=== PATIENT | female | born 1995 | race African-American/Black ===

== ENCOUNTER 2016-10-31 20:38 | Emergency (ER) | payer OTHER ==
[2016-10-31 20:48] VITALS: RESP 16
[2016-10-31 21:26] LABS: Appearance,Urine Cloudy (Clear); Bacteria,Urine Rare /hpf; Bilirubin,Urine Negative (Negative); Glucose,Urine (UA) Negative (Negative); Ketones,Urine Negative (Negative); Leukocyte Esterase,Urine Small (Negative); Mucus,Urine Rare /hpf; Nitrite,Urine Negative (Negative); Particle Count 3864; Protein,Urine Negative (Negative); RBC,Urine 1 /hpf (0-5); Specific Gravity,Urine 1.024 (1.001-1.035); Squamous Epithelial Cell,Urine 13 /hpf (0-4); UA Billing (MACRO vs. MICRO) MICRO; WBC,Urine 3 /hpf (0-5)
--- NOTE | 2016-10-31 22:06 | ED ---
Female Urogenital HPI - General Chief complaint: Urogenital Stated complaint: Female Time Seen by Provider: 10/31/16 21:04 Source: patient, RN notes reviewed Mode of arrival: ambulatory Limitations: no limitations - History of Present Illness Initial comments: Patient is a 21-year-old female presents to the emergency room for evaluation of vaginal irritation. Patient states she noticed pain while urinating this morning when she woke up. Patient states symptoms are not going away. Patient does state she has a history of bacterial vaginosis, chlamydia and gonorrhea. Patient states she was treated for all 3 in the past. Patient denies any known STDs from recent sexual partners. Patient denies blood in urine. Patient denies trouble urinating. Patient denies flank pain. Patient denies nausea or vomiting. Patient denies fevers or chills. Patient denies taking anything for her symptoms. Patient denies any abnormal vaginal discharge. Patient denies abdominal pain. Last Menstrual Period: 10/22/16 - Related Data Previous Rx's Medication Instructions Recorded Doxycycline [Vibramycin] 100 mg PO Q12HR 14 Days 10/31/16 Allergies Allergy/AdvReac Type Severity Reaction Status Date / Time No Known Allergies Allergy Verified 10/31/16 21:11 Review of Systems ROS Statement: Those systems with pertinent positive or pertinent negative responses have been documented in the HPI. ROS Other: All systems not noted in ROS Statement are negative. Past Medical History Past Medical History: No Reported History History of Any Multi-Drug Resistant Organisms: None Reported Past Surgical History: No Surgical Hx Reported Past Psychological History: No Psychological Hx Reported Smoking Status: Current every day smoker Past Alcohol Use History: None Reported Past Drug Use History: None Reported General Exam - General Exam Comments Initial Comments: Sitting in exam room, no acute distress. Limitations: no limitations General appearance: alert, in no apparent distress Head exam: Present: atraumatic, normocephalic, normal inspection Eye exam: Present: normal appearance ENT exam: Present: normal exam Neck exam: Present: normal inspection Respiratory exam: Present: normal lung sounds bilaterally. Absent: respiratory distress Cardiovascular Exam: Present: regular rate, normal rhythm, normal heart sounds External exam: Present: normal external exam Speculum exam: Present: normal speculum exam, vaginal discharge By manual exam: Present: cervical motion tenderness, adnexal tenderness Extremities exam: Present: normal inspection Back exam: Present: normal inspection Neurological exam: Present: alert, oriented X3, CN II-XII intact, normal gait Psychiatric exam: Present: normal affect, normal mood Skin exam: Present: warm, dry, intact, normal color. Absent: rash Course Vital Signs 10/31/16 10/31/16 20:45 23:05 Temperature 98.4 F 97 F L Pulse Rate 89 68 Respiratory 16 16 Rate Blood Pressure 132/81 119/68 O2 Sat by Pulse 96 97 Oximetry Medical Decision Making - Medical Decision Making Patient is a 21-year-old female presents to the emergency room for evaluation of dysuria. Urinalysis not suspicious for urinary tract infection. Patient presented with cervical motion tenderness on pelvic exam. Cultures pending. Trichomonas negative. Given patient's symptoms, physical exam and STD history, will treat patient for PID and advised to follow-up with [facility]. Patient states she understands everything that was discussed with her. Return parameters discussed. Case discussed with Dr. Voss. - Lab Data Lab Results 10/31/16 10/31/16 10/31/16 Range/Units 21:09 21:09 22:12 Urine Color Yellow Urine Appearance Cloudy H (Clear) Urine pH 6.0 (5.0-8.0) Ur Specific Rogers 1.024 (1.001-1.035) Urine Protein Negative (Negative) Urine Glucose (UA) Negative (Negative) Urine Ketones Negative (Negative) Urine Blood Negative (Negative) Urine Nitrate Negative (Negative) Urine Bilirubin Negative (Negative) Urine Urobilinogen 2.0 (<2.0) mg/dL Ur Leukocyte Esterase Small H (Negative) Urine RBC 1 (0-5) /hpf Urine WBC 3 (0-5) /hpf Ur Squamous Epith Cells 13 H (0-4) /hpf Urine Bacteria Rare H (None) /hpf Urine Mucus Rare H (None) /hpf Urine HCG, Qual Not Detected (Not Detectd) Trichomonas Ag (Rapid) Negative (Negative) Disposition Clinical Impression: PID (pelvic inflammatory disease) Disposition: HOME SELF-CARE Condition: Good Instructions: Pelvic Inflammatory Disease (ED) Additional Instructions: Take antibiotics as directed. Please follow-up with [facility]. If any new symptom arises, symptoms worsen or fever develops, return to ER as soon as possible. Prescriptions: Doxycycline [Vibramycin] 100 mg PO Q12HR 14 Days Referrals: Juve De Jesus DO [Primary Care Provider] - 1-2 days Hermelinda Austin MD [STAFF PHYSICIAN] - 1-2 days Time of Disposition: 22:34
[2016-10-31] MEDS ORDERED: cefTRIAXone 250 MG VIAL IM STA (22:17)
[2016-10-31] MEDS ORDERED: DOXYCYCLINE 50 MG CAP PO STA (22:17)
[2016-10-31 23:06] VITALS: BP 119/68; PULSE 68; TEMP 97
== END 2016-10-31 23:04 | disposition home or self-care (01) ==
LOC: EC 20:38
DX: N73.9 Female pelvic inflammatory disease, unspecified (principal); F17.200 Nicotine dependence, unspecified, uncomplicated
CPT/HCPCS: 96372; 99283; 87591; 87491; 81001; 81025; 87808; 87070; J0696; 87205; 96374